=== PATIENT | male | born 1965 | race Caucasian/White ===

== ENCOUNTER → 2019-03-09 | Outpatient (CLI) | payer OTHER ==
[~2019-03-09] MED LIST: BACL-19 PO; HYDR-3307 PO; METH750T2 PO; METH750T87 PO
[2019-03-09 11:14] LABS: INTERNATIONAL NORMALIZED RATIO 1.02 (0.93-1.1); PROTHROMBIN TIME 10.7 Seconds (9.6-11.5)
[2019-03-09 11:16] LABS: ANION GAP 6 mmol/L (5-15); CHLORIDE 109 mmol/L (98-107); CREATININE 0.88 mg/dL (0.7-1.3)
[2019-03-09 11:40] LABS: BASOPHILS # (AUTO) 0.02 x10^3/uL (0-0.1); BASOPHILS % (AUTO) 0 % (0-1); EOSINOPHILS # (AUTO) 0.12 x10^3/uL (0-0.4); EOSINOPHILS % (AUTO) 2 % (1-7); LYMPHOCYTES # (AUTO) 2.33 x10^3/uL (1-3.4); LYMPHOCYTES % (AUTO) 35 % (22-44); MD SCAN; MEAN CORPUSCULAR HEMOGLOBIN 32.3 pg (27.5-34.5); MEAN CORPUSCULAR HGB CONC 34.5 g/dL (33.2-36.2); MEAN CORPUSCULAR VOLUME 93.6 fL (81-97); MEAN PLATELET VOLUME 7.9 fL (7.4-10.4); MONOCYTES # (AUTO) 0.37 x10^3/uL (0.2-0.8); MONOCYTES % (AUTO) 6 % (2-9); NEUTROPHILS # (AUTO) 3.78 x10^3/uL (1.8-6.8); NEUTROPHILS % (AUTO) 57 % (42-75); PLATELET COUNT 89 x10^3/uL (130-400); RED BLOOD COUNT 5.64 x10^6/uL (4.38-5.82); RED CELL DISTRIBUTION WIDTH 13.8 % (9.4-14.8)
== END | disposition home or self-care (01) ==
LOC: STAR 09:41
PROVIDERS: ATTEND Neurological Surgery
DX: Z01.818 Encounter for other preprocedural examination (principal); M51.26 Other intervertebral disc displacement, lumbar region
CPT/HCPCS: 36415; 71046; 80048; 85025; 85610; 85730; 93005

== ENCOUNTER 2019-03-13 10:47 | Inpatient (IN) | payer OTHER ==
[~2019-03-13] VITALS: Ht 188 cm; Wt 105.5 kg
[~2019-03-13 10:47] MED LIST changes: -METH750T2 PO; -METH750T87 PO
[2019-03-13] MEDS ORDERED: LACTATED RINGERS 1,000 ML IV SCH (11:17)
[2019-03-13] MEDS ORDERED: THROMBIN 5,000 UNIT VIAL TP ONE ×2 (11:21→13:59)
[2019-03-13] MEDS ORDERED: BACITRACIN 50,000 UNIT IRRIG ONE (11:22)
[2019-03-13] MEDS: BUPIVACAINE/EPI 0.5% 1:200K INFIL ONE ×2 (11:23→14:56)
[2019-03-13] MEDS ORDERED: FENTANYL PF 100 MCG/2ML ONE ×2 (11:30→11:31)
[2019-03-13] MEDS ORDERED: ONDANSETRON 2MG/ML, 2ML ONE ×2 (11:31→14:15)
[2019-03-13] MEDS ORDERED: SUCCINYLCHOLINE 20 MG/ML, 10ML ONE (11:31)
[2019-03-13] MEDS ORDERED: CEFAZOLIN 1,000 MG ONE ×2 (11:31)
[2019-03-13] MEDS ORDERED: PROPOFOL 10 MG/ML, 20ML ONE (11:31)
[2019-03-13] MEDS ORDERED: DEXAMETHASONE 4 MG/ML, 1ML ONE ×2 (11:31)
[2019-03-13] MEDS ORDERED: MIDAZOLAM 1 MG/ML, 2ML ONE (11:31)
[2019-03-13] MEDS ORDERED: LIDOCAINE-MPF 2% ,5ML ONE (11:31)
[2019-03-13] MEDS ORDERED: BUPIVACAINE/EPI 0.5% 1:200K ONE (13:59)
[2019-03-13] MEDS ORDERED: BACITRACIN 50,000 UNIT ONE (13:59)
[2019-03-13] MEDS ORDERED: GLYCOPYRROLATE 0.2MG/1ML, 5ML ONE (14:15)
[2019-03-13] MEDS ORDERED: NEOSTIGMINE 1 MG/ML, 10ML ONE (14:15)
[2019-03-13] MEDS ORDERED: ACETAMINOPHEN 325 MG TABLET PO PRN ×2 (15:00→17:30)
[2019-03-13] MEDS ORDERED: FENTANYL PF 100 MCG/2ML IV PRN (15:00)
[2019-03-13] MEDS ORDERED: MEPERIDINE/PF 25MG/0.5ML IVPush PRN (15:00)
[2019-03-13] MEDS ORDERED: METOPROLOL 1 MG/ML, 5ML IV PRN (15:00)
[2019-03-13] MEDS ORDERED: LORazepam 2 MG/ML, 1ML IVPush PRN (15:00)
[2019-03-13] MEDS ORDERED: OXYcodone 5 MG/5 ML ORAL.SOL UDC PO PRN (15:00)
[2019-03-13] MEDS ORDERED: hydrALAzine 20 MG/ML, 1ML IV PRN (15:00)
[2019-03-13] MEDS ORDERED: METOCLOPRAMIDE 5 MG/ML, 2ML IV PRN (15:00)
[2019-03-13] MEDS ORDERED: LABETALOL 5 MG/ML SYRINGE IV PRN (15:00)
[2019-03-13] MEDS ORDERED: ONDANSETRON 2MG/ML, 2ML IV PRN ×2 (15:00→17:30)
[2019-03-13] MEDS ORDERED: ACETAMINOPHEN 650 MG/20.3 ML UDC ONE (15:41)
[2019-03-13] MEDS ORDERED: OXYcodone 5 MG/5 ML ORAL.SOL UDC ONE (15:42)
[2019-03-13] MEDS ORDERED: HYDROmorphone 2 MG/ML, 1ML ONE (15:43)
[2019-03-13] MEDS: HYDROmorphone 2 MG/ML, 1ML IVPush PRN ×2 (16:00→16:10)
[2019-03-13] MEDS ORDERED: PHARMACY MAY ADJ FOR RENAL FX MC PRN (17:00)
[2019-03-13] MEDS ORDERED: MAGNESIUM HYDROXIDE 8%, 30ML UDC PO PRN (17:30)
[2019-03-13] MEDS ORDERED: PROMETHAZINE 25 MG/ML, 1ML IM PRN (17:30)
[2019-03-13] MEDS ORDERED: ACETAMINOPHEN 650 MG SUPP PR PRN (17:30)
[2019-03-13] MEDS ORDERED: METHOCARBAMOL 750 MG TABLET PO PRN (17:30)
[2019-03-13] MEDS ORDERED: DIPHENHYDRAMINE 50 MG/ML, 1ML IVPush PRN (17:30)
[2019-03-13] MEDS ORDERED: HYDROmorphone 2 MG/ML, 1ML IM PRN (17:30)
[2019-03-13] MEDS ORDERED: DIPHENHYDRAMINE 50 MG CAPSULE PO PRN (17:30)
[2019-03-13] MEDS ORDERED: BISACODYL 10 MG SUPP PR PRN (17:30)
[2019-03-13] MEDS ORDERED: LABETALOL 5MG/ML, 20ML IV PRN (17:30)
[2019-03-13] MEDS ORDERED: DIAZEPAM 5 MG/ML, 2ML IV PRN (17:30)
[2019-03-13] MEDS ORDERED: DIPHENHYDRAMINE 50 MG/ML, 1ML IM PRN (17:30)
[2019-03-13] MEDS ORDERED: OXYcodone/APAP 5/325MG TABLET PO PRN (19:30)
[2019-03-13 19:59] VITALS: BP 120/74
[2019-03-13] MEDS: DIAZEPAM 5 MG TABLET PO PRN (22:22)
[2019-03-13] MEDS: HYDROcodone/APAP 5/325 TABLET PO PRN (22:22)
[2019-03-13] MEDS: NS + 20MEQ KCL 1,000 ML IV SCH (22:36)
[2019-03-13] MEDS: CEFAZOLIN PMX 1GM/50ML 50 ML IVPB SCH (22:36)
[2019-03-14 00:14] VITALS: BP 137/73
[2019-03-14] MEDS ORDERED: CYCLOBENZAPRINE 10 MG TABLET PO PRN (02:00)
[2019-03-14] MEDS: HYDROcodone/APAP 5/325 TABLET PO PRN ×2 (02:34→08:05)
[2019-03-14] MEDS: DIAZEPAM 5 MG TABLET PO PRN (04:34)
[2019-03-14 04:51] VITALS: BP 119/73
[2019-03-14] MEDS: CEFAZOLIN PMX 1GM/50ML 50 ML IVPB SCH (06:06)
[2019-03-14 07:00] VITALS: BP 118/67
[2019-03-14] MEDS ORDERED: METH750T87 PO (08:05)
[2019-03-14] MEDS ORDERED: HYDR-3307 PO ×2 (08:05→11:50)
[2019-03-14] MEDS ORDERED: SENNA/DOCUSATE TABLET PO SCH (09:00)
[2019-03-14] MEDS: NS + 20MEQ KCL 1,000 ML IV SCH (10:44)
[2019-03-14] MEDS ORDERED: METH750T2 PO (11:51)
[2019-03-14 13:00] VITALS: BP 132/72
== END 2019-03-14 14:20 | disposition home or self-care (01) | DRG 520 ==
LOC: OUT 10:47 → 4NOR 16:48 → OUT 16:51 → DCLOUNGE 03-14 13:56
PROVIDERS: ADMIT Neurological Surgery; ATTEND Neurological Surgery
PROC: 0SB20ZZ Excision of Lumbar Vertebral Disc, Open Approach (ICD-10-PCS; 2019-03-13)
PROC: 01NB0ZZ Release Lumbar Nerve, Open Approach (ICD-10-PCS; 2019-03-13)
PROC: 00NY0ZZ Release Lumbar Spinal Cord, Open Approach (ICD-10-PCS; principal; 2019-03-13 14:00)
DX: M51.16 Intervertebral disc disorders with radiculopathy, lumbar region (principal); Z87.891 Personal history of nicotine dependence; E78.00 Pure hypercholesterolemia, unspecified
CPT/HCPCS: 72100; J3490; G0378; J0690; J1100; J1170; J2250; J2405; J2704; J2710; J3010; J3480; J0330; J7120